=== PATIENT | male | born 1985 | race Two or more races ===

== ENCOUNTER 2021-11-05 12:54 | Emergency (ER) | payer MEDICAID, SELFPAY ==
--- NOTE | ~2021-11-05 | CT_ITS ---
EXAMINATION: CT BRAIN AND CT FACIAL BONES WITHOUT CONTRAST. CLINICAL INFORMATION: Fall with facial trauma COMPARISON: None TECHNIQUE: 5 mm thin axial and reformatted 2 mm thin sagittal and coronal images of brain were obtained. Axial 3 mm thin and reformatted 1.5 mm thin sagittal and coronal images of cervical spine were obtained. DLP 1185. FINDINGS: Brain: There is no acute intra-axial, extra-axial bleed, masses, collection midline shift. There is no acute infarction evolution. The lateral ventricles are slightly asymmetrical but not enlarged. The toscano to white matter difference is maintained normal. There is no edema. Bone windows reveal no calvarial abnormality. There is no scalp soft tissue abnormality. Bilateral paranasal sinuses and mastoid air cells are well-aerated with diffuse mucoperiosteal thickening bilateral ethmoid and maxillary sinuses. Rest the paranasal sinuses and mastoid air cells are well-aerated. Facial bones: There is mild mucoperiosteal thickening bilateral maxillary and ethmoid sinuses. The bony sinus merrill are intact. There is hypertrophic changes involving left middle and inferior turbinates. The left nasal cavity is slightly of iterative degenerative enlargement of turbinates and nasal mucosal hypertrophy. The bony orbits are symmetric and normal. Visualized bilateral optic globe, optic nerve and periorbital soft tissues are normal. There is no acute fracture involving maxillofacial and nasal bone. The soft tissues are normal. Bilateral TM joints are symmetrical and normal. There is no fracture involving the mandible. CT/CT facial bones wo con IMPRESSION: No acute intracranial process seen. No acute maxillofacial, nasal or mandibular fracture. 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
[2021-11-05 13:10] VITALS: BP 145/97; PULSE 120; RESP 20; TEMP 37; O2SAT 100; BMI 24.4
--- NOTE | 2021-11-05 13:29 | ED_ITS ---
HPI - General Adult General Chief complaint: General Medical Stated complaint: fell facial lac pain swelling Time Seen by Provider: 11/05/21 13:29 Source: patient Mode of arrival: ambulatory Limitations: no limitations History of Present Illness HPI narrative: Patient is a 36 year old male presenting to the emergency department today with lip pain after a fall. Patient states that he was drinking a large amount of alcohol last night when he tripped and fell, landing on his face. Patient states that he felt his 2 front teeth, push upwards and his bottom lip began bleeding. Patient states that this happened at approximately 0200 this morning. Patient states that he did not lose consciousness with the incident and did not injur anything else with the incident. Patient denies any dizziness, lightheadedness, abdominal pain, nausea, vomiting, fever, chills, blurry vision, double vision, loss of vision, chest pain, difficulty breathing, shortness of breath, back pain, night sweats, pain with urination, increased urinary frequency, increased urinary urgency, blood in his urine or stool, syncope or a near syncopal episode, bowel incontinence, bladder incontinence, bowel retention, bladder retention, or any other complaints at this time. Onset (ago): hour(s) Location: face Severity: mild Severity scale (1-10): 3 Pain Consistency: constant Relieving factors: none Exacerbating factors: none Associated symptoms: denies other symptoms Related Data Previous Rx's Medication Instructions Recorded amoxicillin 875 mg tablet 875 mg PO BID 7 Days #14 tab 11/05/21 Allergies Allergy/AdvReac Type Severity Reaction Status Date / Time No Known Allergies Allergy Unverified 06/16/20 19:08 [No Known Allergies*] Review of Systems Verdana 4l Constitutional: Verdana 4d Verdana 4d Constitutional: Verdana 4d Reports no additional constitutional complaints, Denies chills, Denies fever(s) and Denies night sweats Verdana 4l Eyes: Verdana 4d Verdana 4d Eyes: Verdana 4d Reports no additional eye complaints, Denies blurry vision, Denies change in vision, Denies diplopia, Denies eye discharge, Denies loss of vision and Denies eye pain Verdana 4l ENT: Verdana 4d Denies dizziness Verdana 4d Comments: Verdana 4d Verdana 4d lip laceration and dental pain Verdana 4d Verdana 4l Cardiovascular: Verdana 4d Verdana 4d Cardiovascular: Verdana 4d Reports no additional cardiovascular complaints, Denies chest pain, Denies lightheadedness, Denies Loss of Consciousness and Denies dyspnea Verdana 4l Respiratory: Verdana 4d Verdana 4d Respiratory: Verdana 4d Reports no additional respiratory complaints and Denies dyspnea Verdana 4l Gastrointestinal: Verdana 4d Verdana 4d Gastrointestinal: Verdana 4d Reports no additional gastrointestinal complaints, Denies abdominal pain, Denies melena, Denies hematochezia, Denies change in bowel habits and Denies change in stool character Verdana 4l Genitourinary: Verdana 4d Verdana 4d Genitourinary: Verdana 4d Reports no additional male genitourinary complaints, Denies hematuria, Denies oliguria, Denies difficulty urinating, Denies dysuria, Denies urinary frequency, Denies urinary hesitancy, Denies urinary incontinenceincontinence and Denies urinary urgency Musculoskeletal: Musculoskeletal: Reports no additional musculoskeletal complaints, Denies numbness and Denies tingling Neurologic: Denies dizziness, Denies loss of vision, Denies numbness and Denies tingling Psychiatric: Psychiatric: Reports no additional psychiatric complaints Endocrine: Endocrine: Reports no additional endocrine complaints Hematologic/Lymphatic: Hematologic/Lymphatic: Reports no additional hematologic/lymphatic complaints Allergic/Immunologic: Allergic/Immunologic: Reports no additional allergic/immunologic complaints [facility] Past Medical History Attestation statement: The following information was validated with the patient. Medical History (Updated 11/05/21 @ 15:19 by AYDE Root) No known health problems Social History Social History Advance Directives: No Advance Directives Information Provided: Yes Physical Exam Verdana 4l Vital Signs: Verdana 4d Verdana 4d Vital Signs: Verdana 4d Verdana 4Bd Last Vital Signs Verdana 4d Offal Baler New 4d Offal Baler New 4d Temp 98.6 F 11/05/21 13:10 Offal Baler New 4d Pulse 120 H 11/05/21 13:10 Offal Baler New 4d Resp 20 11/05/21 13:10 BP 145/97 H 11/05/21 13:10 Pulse Ox 100 11/05/21 13:10 BMI result Body Mass Index 24.4 Const: General: cooperative, no acute distress, alert and awake Nutritional Appearance: well nourished Orientation/consciousness: patient oriented x3 Limitations: no limitations HENMT: Head: Yes normal to inspection and Yes atraumatic Ears: hearing grossly normal bilaterally and external ears normal General nose exam: Normal external nose present, no nasal discharge noted and no epistaxis Face and sinus: Yes normal facial exam, No abrasion and No laceration Mouth: Normal oral and palatal mucosa present, no drooling, no muffled voice and other (1cm laceration to the right side of the internal bottom lip) Teeth image: 1. Stable to palpation however, are tender to palpation. Eyes: General: appearance normal, both eyes and all related structures Periorbital: periorbital findings normal Eyelids: Yes eyelids normal Conjunctivae: conjunctivae normal Pupils: Equal, round and reactive pupils present EOM: EOMs intact bilaterally Neck: Neck: Yes normal visual inspection, Yes full ROM and Yes no lymphadenopathy Chest: Chest palpation & inspection: normal inspection of the chest Resp: Effort & Inspection: normal respiratory effort and able to speak in complete sentences Auscultation: clear to auscultation bilaterally Cardio: Rate: regular rate Rhythm: regular rhythm GI: Inspection: Yes normal to inspection Neuro: General: patient oriented x3 and moves all extremities Cranial nerves: Yes Equal, round and reactive pupils present Cognition (Neuro): normal cognition Motor exam (neuro): 5/5 motor strength present throughout Sensory Exam: Normal double simultaneous stimulation for sensation Coordination: [id number] test normal Extrem: General: Yes normal to inspection, Yes full ROM and Yes capillary refill normal Psych: Appearance: grossly normal Mental Status: mental status grossly normal Affect: normal affect Attitude: cooperative Thought process: Normal thought process present Thought content: Normal thought content present Insight: Good insight present (Psych) Procedures Laceration Laceration 1: Site: lip (lower) Side (If applicable): right Size (cm): 1 Description: linear Depth: simple, single layer Pre-repair: irrigated extensively Skin layer closed with: vicryl Size (cm): 6-0 Number of sutures: 1 Technique: simple, interrupted Subcutaneous layer closed with: vicryl Medical Decision Making MDM Narrative Medical decision making narrative: Patient is a 36 year old male presenting to the emergency department today with lip pain after a fall. Patient's physical exam showed very poor dentition throughout the mouth as well as a 1cm laceration to the inner aspect of the right side of the lower lip. There was no active bleeding from the laceration. Patient's teeth were palpated throughout, specifically the 2 front teeth, and all were deemed stable. Patient's CT head and CT maxilofacial showed no acute process. I explained my physical exam findings as well as all test results to the patient. I answered all questions asked by the patient. Patient's laceration was repaired, per procedure note, without incident. I stressed the importance of the patient taking his medication, including his antibiotic, as prescribed. I stressed the importance of the patient establishing and following up with a primary care provider and dentist. I stressed the importance of the patient returning to the emergency department immediately if his symptoms were to worsen or if he were to develop any dizziness, shortness of breath, difficulty breathing, chest pain, blurry vision, loss of vision, nausea, vomiting, abdominal pain, fever, chills, back pain, or any other complaints. Patient verbalized agreement and understanding with this treatment plan and discharge. Differential Diagnosis Differential Diagnosis: Lip laceration, lip abrasion, dental fracture Medical Records Medical records reviewed: Yes I reviewed the patient's medical records. Imaging Data CT head and maxilofacial : Attestation: I personally reviewed and interpreted this imaging study as follows: Radiologist's impression: EXAMINATION: CT BRAIN AND CT FACIAL BONES WITHOUT CONTRAST. CLINICAL INFORMATION: Fall with facial trauma? COMPARISON: None? TECHNIQUE: 5 mm thin axial and reformatted 2 mm thin sagittal and coronal images of brain were obtained. Axial 3 mm thin and reformatted 1.5 mm thin sagittal and coronal images of cervical spine were obtained. DLP 1185. FINDINGS: Brain: There is no acute intra-axial, extra-axial bleed, masses, collection midline shift. There is no acute infarction evolution. The lateral ventricles are slightly asymmetrical but not enlarged. The toscano to white matter difference is maintained normal. There is no edema. Bone windows reveal no calvarial abnormality. There is no scalp soft tissue abnormality. Bilateral paranasal sinuses and mastoid air cells are well-aerated with diffuse mucoperiosteal thickening bilateral ethmoid and maxillary sinuses. Rest the paranasal sinuses and mastoid air cells are well-aerated. Facial bones: There is mild mucoperiosteal thickening bilateral maxillary and ethmoid sinuses. The bony sinus merrill are intact. There is hypertrophic changes involving left middle and inferior turbinates. The left nasal cavity is slightly of iterative degenerative enlargement of turbinates and nasal mucosal hypertrophy. The bony orbits are symmetric and normal. Visualized bilateral optic globe, optic nerve and periorbital soft tissues are normal. There is no acute fracture involving maxillofacial and nasal bone. The soft tissues are normal. Bilateral TM joints are symmetrical and normal. There is no fracture involving the mandible. CT/CT head/brain wo con IMPRESSION: No acute intracranial process seen. ? No acute maxillofacial, nasal or mandibular fracture. ? 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 Dictated By: Dennys Chery MD Signed By: Electronically signed by Dennys Chery MD 11/05/21 1917 Discharge Plan Discharge Clinical Impression: Laceration of internal mouth Patient Disposition: Home, Self-Care Instructions: Facial Laceration (ED) Additional Instructions: Call or visit any of the clinics below to establish with a dentist: [facility] [address] [place] [address] [facility] [address] [facility], [address] [facility] [address] [place] [address] [facility] [address] [place] [id number] [facility] [address] [place] [address] [place] [address] [place] [address] Call to discuss finding and establishing with a primary care provider. Follow up with your primary care provider. Return to the emergency department immediately if your symptoms worsen or if you develop any dizziness, shortness of breath, difficulty breathing, chest pain, blurry vision, loss of vision, nausea, vomiting, abdominal pain, fever, chills, back pain, or any other complaints. Prescriptions: New amoxicillin 875 mg tablet 875 mg PO BID 7 Days Qty: 14 0RF Stand Alone Forms: Work/School Release Interventions: ED Discharge Assessment Last Done: 11/05/21 15:27 Discharge Date/Time: 11/05/21 15:28 Print Language: Lithuanian
--- NOTE | 2021-11-05 15:27 | PC.NURSE ---
BOTTOM LIP IRRIGATED WITH NS, 1 SUTURE PLACED BY PA. PT TOLERATED PROCEDURE WELL.
== END 2021-11-05 15:28 | disposition home or self-care (01) ==
PROVIDERS: Emergency Provider Emergency Medicine
DX: S01.511A Laceration without foreign body of lip, initial encounter (principal); G44.309 Post-traumatic headache, unspecified, not intractable; W01.0XXA Fall on same level from slipping, tripping and stumbling without subsequent striking against object, initial encounter; Y93.9 Activity, unspecified; Y92.9 Unspecified place or not applicable; Y99.9 Unspecified external cause status
CPT/HCPCS: 12011; 70450; 70486; 99283

== ENCOUNTER 2021-11-11 14:47 | Emergency (ER) | payer MEDICAID, SELFPAY ==
[2021-11-11 15:21] VITALS: BP 133/84; PULSE 76; RESP 18; TEMP 36.4; O2SAT 96; BMI 25.0
--- NOTE | 2021-11-11 15:50 | ED.WOUNDLAC ---
HPI - Wound/Laceration General Chief Complaint: Wound/Laceration Stated Complaint: oral pain Time Seen by Provider: 11/11/21 14:52 Source: patient Mode of arrival: ambulatory Limitations: no limitations History of Present Illness HPI narrative: 36-year-old male here with complaints of lower lip swelling with discharge. Patient was seen here on November 05 after having a mechanical fall causing a lip laceration. He had 1 suture placed to the outer aspect of the lip but no sutures are placed on the inner lip. Patient returns today because he reports that his lower lip is painful, swollen with foul discharge. He was prescribed Augmentin twice daily for 7 days but is unclear with the patient took this medication. He denies any fevers or chills. He is using salt water gargles daily. No fevers, chills Related Data Previous Rx's Medication Instructions Recorded amoxicillin 875 mg tablet 875 mg PO BID 7 Days #14 tab 11/05/21 amoxicillin 875 mg-potassium 1 tab PO BID #14 tab 11/11/21 clavulanate 125 mg tablet Allergies Allergy/AdvReac Type Severity Reaction Status Date / Time No Known Allergies Allergy Unverified 06/16/20 19:08 [No Known Allergies*] Review of Systems Review of Systems: Yes all other systems are reviewed and are negative Constitutional: Constitutional: Reports no additional constitutional complaints, Denies body ache(s), Denies chills, Denies fever(s), Denies headache(s) and Denies weakness Eyes: Eyes: Reports no additional eye complaints and Denies change in vision ENT: Reports system reviewed and no additional complaints, except as documented, Denies dizziness, Denies headache(s), Reports lip swelling, Denies nasal congestion, Denies nasal discharge and Denies neck pain Cardiovascular: Cardiovascular: Reports no additional cardiovascular complaints, Denies chest pain, Denies leg edema and Denies dyspnea Respiratory: Respiratory: Reports no additional respiratory complaints, Denies cough and Denies dyspnea Gastrointestinal: Gastrointestinal: Reports no additional gastrointestinal complaints, Denies abdominal pain, Denies diarrhea, Denies nausea and Denies vomiting Genitourinary: Genitourinary: Denies urinary incontinence Musculoskeletal: Musculoskeletal: Reports no additional musculoskeletal complaints, Denies back pain, Denies arthralgias, Denies joint swelling, Denies neck pain, Denies numbness and Denies tingling Integumentary/Breasts: Skin/Breast: Reports system reviewed and no additional complaints, except as docu and Denies rash Neurologic: Reports system reviewed and no additional complaints, except as documented, Denies Abnormal speech present, Denies dizziness, Denies headache(s), Denies numbness, Denies tingling and Denies weakness Allergic/Immunologic: Allergic/Immunologic: Reports lip swelling PMFSH Past Medical History Attestation statement: The following information was validated with the patient. Source: old records reviewed and nursing notes reviewed Medical History No known health problems Social History Social History Advance Directives: No Advance Directives Information Provided: No Physical Exam Vital Signs: Vital Signs: Last Vital Signs Temp 97.6 F 11/11/21 15:21 Pulse 76 11/11/21 15:21 Resp 18 11/11/21 15:21 BP 133/84 11/11/21 15:21 Pulse Ox 96 11/11/21 15:21 BMI result Body Mass Index 25.0 Const: General: cooperative, healthy appearing, comfortable and no acute distress Orientation/consciousness: patient oriented x3 Limitations: no limitations HENMT: Head: Yes normal to inspection Ears: hearing grossly normal bilaterally General nose exam: Normal external nose present Face and sinus: Yes normal facial exam Mouth: Normal oral and palatal mucosa present Mouth/tongue images: 1. on the inner aspect of the lip there is a laceration that is present. There is local swelling, exudate noted over the wound with tenderness to palpate. There is no palpable fluctuance. Throat: Yes posterior oropharynx normal Eyes: General: appearance normal, both eyes and all related structures Pupils: Equal, round and reactive pupils present Neck: Neck: Yes normal visual inspection Chest: Chest palpation & inspection: normal inspection of the chest Resp: Effort & Inspection: normal respiratory effort Auscultation: clear to auscultation bilaterally Cardio: Rate: regular rate Rhythm: regular rhythm Peripheral pulses: Peripheral pulses 2+ throughout GI: Inspection: Yes normal to inspection Palpation (GI): Soft to palpation and nontender Auscultation: normal bowel sounds Back/Spine/Pelvis: Thoracic/Lumbar Spine: thoracic and lumbar spine normal to inspection Skin: General skin exam: no rashes or lesions noted Neuro: General: patient oriented x3, no focal motor deficits and normal sensation to monofilament Cranial nerves: Yes Equal, round and reactive pupils present Cognition (Neuro): normal cognition Speech: No Abnormal speech present Gait exam (Neuro): Normal gait present Motor exam (neuro): 5/5 motor strength present throughout Extrem: General: Yes normal to inspection Course Course Course Narrative: 36-year-old male here with reports of lower lip swelling with pain and drainage after having a fall approximately 1 week ago causing a laceration to the inner lip that was not closed with any sutures. It is unclear if the patient has been using his oral antibiotics On exam he does have some swelling, tenderness, exudate over the wound site. Consistent with and wound infection. There is no palpable fluctuance or abscess on exam. Will treat with course of antibiotics. I discussed the patient should be using hydrogen peroxide to clean the wound and saltwater gargles. Reviewed worrisome signs and symptoms of when to return to the emergency department. Comfortable discharge home. MDM - Wound/Laceration Medical Records Attestation: I reviewed the patient's medical records. Lab Data Attestation: I reviewed the patient's lab results. Discharge Plan Discharge Clinical Impression: Infection of lip Patient Disposition: Home, Self-Care Instructions: Wound Infection (DC) Additional Instructions: Continue saltwater gargles or hydrogen peroxide rinses Prescriptions: New amoxicillin-pot clavulanate 875-125 mg tablet 1 tab PO BID Qty: 14 0RF No Action amoxicillin 875 mg tablet 875 mg PO BID 7 Days Qty: 14 0RF Referrals: Physician,Unknown J [Primary Care Provider] - 2 days Interventions: ED Discharge Assessment Last Done: 11/11/21 15:57 Discharge Date/Time: 11/11/21 15:57
== END 2021-11-11 15:57 | disposition home or self-care (01) ==
LOC: HO.ED 15:39
PROVIDERS: Emergency Provider Emergency Medicine Emergency Medical Services
DX: K13.0 Diseases of lips (principal)
CPT/HCPCS: 99283

== ENCOUNTER 2021-12-01 08:21 | Emergency (ER) | payer MEDICAID, SELFPAY ==
[2021-12-01 08:30] VITALS: BP 137/81; PULSE 90; RESP 16; TEMP 36; O2SAT 96; BMI 24.4
[2021-12-01 09:09] LABS: Amphetamine Screen Urine Not Detected (Not Detect); Barbiturates, Urine Not Detected (Not Detect); Benzodiazepines Screen Urine Not Detected (Not Detect); Cannabinoid Screen Urine Not Detected (Not Detect); Cocaine Screen Urine Not Detected (Not Detect); Fentanyl, urine Not Detected (Not Detect); Opiate Screen Urine Not Detected (Not Detect); Phencyclidine Screen Urine Not Detected (Not Detect)
--- NOTE | 2021-12-01 09:14 | ED_ITS ---
HPI - General Adult General Chief complaint: General Medical Stated complaint: Medical clearance Time Seen by Provider: 12/01/21 09:14 History of Present Illness HPI narrative: Patient has no complaints of any injury or pain but he fell a working may require a drug screen so he is here without complaint requesting a urine drug screen Related Data Previous Rx's Medication Instructions Recorded amoxicillin 875 mg tablet 875 mg PO BID 7 Days #14 tab 11/05/21 amoxicillin 875 mg-potassium 1 tab PO BID #14 tab 11/11/21 clavulanate 125 mg tablet Allergies Allergy/AdvReac Type Severity Reaction Status Date / Time No Known Allergies Allergy Verified 12/01/21 08:31 [No Known Allergies*] Review of Systems Review of Systems: No headache no neck pain no chest pain no shortness of breath no abdominal pain no nausea or vomiting no dizziness no confusion Yes all other systems are reviewed and are negative [facility] Past Medical History Source: nursing notes reviewed Medical History No known health problems Social History Social History Advance Directives: No Advance Directives Information Provided: No Physical Exam ED Vital Signs: Vital Signs - 24 hr 12/01/21 08:30 Temperature 96.8 F Pulse Rate 90 Respiratory Rate 16 Blood Pressure 137/81 Pulse Oximetry 96 BMI result Body Mass Index 24.4 General appearance comfortable cooperative no acute distress Head is normocephalic atraumatic Neck is supple Respiratory no distress Extremities full range of motion x4 Neuro gait and balance are normal and interaction both comprehension and expression are normal, A&O x3 Medical Decision Making Lab Data Lab results reviewed: Yes I reviewed the patient's lab results. Labs: Lab Results 12/01/21 Range/Units 08:47 Urine Opiates Screen Not Detected (Not Detect) Urine Fentanyl Screen Not Detected (Not Detect) Ur Barbiturates Screen Not Detected (Not Detect) Ur Phencyclidine Scrn Not Detected (Not Detect) Ur Amphetamines Screen Not Detected (Not Detect) U Benzodiazepines Scrn Not Detected (Not Detect) Urine Cocaine Screen Not Detected (Not Detect) U Marijuana (THC) Screen Not Detected (Not Detect) Discharge Plan Discharge Clinical Impression: Encounter for drug screening Patient Disposition: Home, Self-Care Additional Instructions: Your drug screen was normal and I gave you a copy Return any time any concerns Prescriptions: No Action amoxicillin 875 mg tablet 875 mg PO BID 7 Days Qty: 14 0RF amoxicillin-pot clavulanate 875-125 mg tablet 1 tab PO BID Qty: 14 0RF
== END 2021-12-01 09:27 | disposition home or self-care (01) ==
PROVIDERS: Emergency Provider Emergency Medicine
DX: Z02.83 Encounter for blood-alcohol and blood-drug test (principal); Z79.899 Other long term (current) drug therapy
CPT/HCPCS: 80307; 99283; 99284

== ENCOUNTER 2021-12-13 15:31 | Emergency (ER) | payer MEDICAID, SELFPAY ==
[2021-12-13 16:06] VITALS: BP 133/84; PULSE 82; RESP 18; O2SAT 97; BMI 25.7
--- NOTE | 2021-12-13 16:30 | ED_ITS ---
HPI - Extremity Injury (Lower) General Chief Complaint: Extremity Injury, Lower Stated Complaint: fell downstairs rt leg pain Time Seen by Provider: 12/13/21 16:03 Source: patient Mode of arrival: ambulatory History of Present Illness HPI Narrative: 36yo M with no sig PMHx presenting to the ED c/o right thigh pain and ecchymosis s/p slip and fall down wet stairs last night. Denies sx prior to fall. Reports caught himself with railing and leg was hitting/rubbing against railing on way down 8 steps, never fell all the way to the ground, denies head trauma or LOC. Ambulatory with pain. Denies injruy to other area. Denies nubness, tingling, weakness complaint: thigh injury Onset (ago): day(s) Related Data Previous Rx's Medication Instructions Recorded amoxicillin 875 mg tablet 875 mg PO BID 7 Days #14 tab 11/05/21 amoxicillin 875 mg-potassium 1 tab PO BID #14 tab 11/11/21 clavulanate 125 mg tablet acetaminophen 500 mg tablet 500 mg PO Q6H PRN #20 tab 12/13/21 (Tylenol Extra Strength) naproxen 500 mg tablet 500 mg PO BID PRN 10 Days #20 tab 12/13/21 Allergies Allergy/AdvReac Type Severity Reaction Status Date / Time No Known Allergies Allergy Verified 12/01/21 08:31 [No Known Allergies*] Review of Systems Review of Systems: Constitutional:No Fever, No Chills ENT/Mouth: No Ear Pain, No Nasal Congestion, No sore throat, No Rhinorrhea Cardiovascular: No Chest Pain, No SOB Respiratory: No Cough Gastrointestinal: No Nausea, No Vomiting, No Abdominal pain Genitourinary:No Dysuria, No Urinary Incontinence, No Flank Pain Musculoskeletal: + joint pain, No Myalgias, No Joint Swelling Skin: + Skin Lesions, No rash Neuro: No Weakness, No Numbness, No Paresthesias, No headache, No LOC Yes all other systems are reviewed and are negative [facility] Past Medical History Attestation statement: The following information was validated with the patient. Medical History No known health problems Social History Social History Advance Directives: No Advance Directives Information Provided: No Physical Exam Vital Signs: Vital Signs: Last Vital Signs Pulse 82 12/13/21 16:06 Resp 18 12/13/21 16:06 BP 133/84 12/13/21 16:06 Pulse Ox 97 12/13/21 16:06 BMI result Body Mass Index 25.7 Const: General: cooperative, healthy appearing and comfortable Orientation/consciousness: patient oriented x3 Limitations: no limitations HENMT: Head: Yes normal to inspection Ears: hearing grossly normal bilaterally General nose exam: Normal external nose present Face and sinus: Yes normal facial exam Eyes: General: appearance normal, both eyes and all related structures EOM: EOMs intact bilaterally Neck: Neck: Yes normal visual inspection and Yes no meningeal signs Resp: Effort & Inspection: normal respiratory effort and no respiratory distress Cardio: Rate: regular rate Heart sounds: S1 normal heart sound present and S2 normal heart sound present Peripheral pulses: dorsalis pedis present Skin: Rashes: no rashes Wounds: no wounds Neuro: General: patient oriented x3 and no meningeal signs Gait exam (Neuro): Normal gait present Extrem: Other: pelvis stable. Right hip/knee and ankle nontender, FROM RLE intact with pain Right lateral thigh with ecchymosis and ttp. compartments soft. NV intact distally General: Yes normal to inspection Right lower extremity: normal capillary refill MDM - Extremity Injury (Lower) MDM Narrative Medical decision making narrative: 36yo M with no sig PMHx presenting to the ED c/o right thigh pain and ecchymosis s/p slip and fall down wet stairs last night. On exam VSS, NAD, well appearing, PE as above c/w ecchymosis/bruising to R thigh Vs small hematoma. Low concern for fx as patient is ambulatory. Compartments soft Plan: Sx tx, return precautions, work note Medical Records Attestation: I reviewed the patient's medical records. Lab Data Attestation: I reviewed the patient's lab results. Discharge Plan Discharge Clinical Impression: Injury of thigh, right, Fall Patient Disposition: Home, Self-Care Instructions: Ecchymosis (ED) Additional Instructions: apply ice rest Naproxen is an antinflammatory / pain medication take with food in addition take tylenol if pain become unbearable please return to the ED Prescriptions: New acetaminophen [Tylenol Extra Strength] 500 mg tablet 500 mg PO Q6H PRN (Reason: pain or fever) Qty: 20 0RF naproxen 500 mg tablet 500 mg PO BID PRN (Reason: pain) 10 Days Qty: 20 0RF No Action amoxicillin 875 mg tablet 875 mg PO BID 7 Days Qty: 14 0RF amoxicillin-pot clavulanate 875-125 mg tablet 1 tab PO BID Qty: 14 0RF Referrals: Physician,Unknown J [Primary Care Provider] - 2 days Stand Alone Forms: Work/School Release Interventions: ED Discharge Assessment Last Done: 12/13/21 16:43
== END 2021-12-13 17:00 | disposition home or self-care (01) ==
LOC: HO.ED 16:48
PROVIDERS: Emergency Provider Emergency Medicine
DX: S89.91XA Unspecified injury of right lower leg, initial encounter (principal); W10.9XXA Fall (on) (from) unspecified stairs and steps, initial encounter; Y93.9 Activity, unspecified; Y92.9 Unspecified place or not applicable; Y99.9 Unspecified external cause status; Z79.899 Other long term (current) drug therapy
CPT/HCPCS: 99282; 99283

== ENCOUNTER 2022-10-31 13:20 | Emergency (ER) | payer MEDICAID, SELFPAY ==
--- NOTE | ~2022-10-31 | XR_ITS ---
EXAMINATION: XR CHEST CLINICAL INFORMATION: Positive Covid, cough with green sputum COMPARISON: None TECHNIQUE: 2 views of the chest were obtained. FINDINGS: The lungs are well-expanded and clear of acute process. Heart size and pulmonary vascularity is normal. No gross bony abnormality seen. XR/XR chest 2V IMPRESSION: Unremarkable chest exam.
[2022-10-31 13:25] VITALS: BP 150/87; PULSE 104; RESP 18; TEMP 36.9; O2SAT 96; BMI 37.2
--- NOTE | 2022-10-31 13:26 | ED_ITS ---
HPI - URI/Sore Throat General Chief Complaint: Upper Respiratory Symptoms <Emmanuelle Jones NP - Last Filed: 10/31/22 13:28> Stated Complaint: Chills/Body aches <Emmanuelle Jones NP - Last Filed: 10/31/22 13:28> Time Seen by Provider: 10/31/22 14:36 <Emmanuelle Jones NP - Last Filed: 10/31/22 13:28> Source: patient <AYDE Walters Last Filed: 10/31/22 16:05> Mode of arrival: ambulatory <AYDE Walters Last Filed: 10/31/22 16:05> Limitations: no limitations <AYDE Walters Last Filed: 10/31/22 16:05> History of Present Illness HPI Narrative: 37yoM c No Sig PMHx presenting to the ER with complaints of generalized fatigue/malaise, chills, body aches, nasal congestion/rhinorrhea, sore throat Sun productive cough with green-colored sputum since Saturday/Saturday worse today. Reports some diarrhea as well. Reports that his kid has similar symptom s a few days ago and they are feeling better. He reports his is now complaining of a sore throat. He denies any other sick contacts that he is aware of although could be work companions as well he reports due to he is working. He denies any measured fevers, dizziness, neck pain/stiffness, trouble swallowing or breathing, chest pain or shortness of breath, dyspnea on exertion, orthopnea, nausea/vomiting, abdominal pain, constipation, rashes, lower extremity edema or calf tenderness or any other symptoms complaints or concerns at this time. <AYDE Walters Last Filed: 10/31/22 16:05> MD elicited complaint: cough, sore throat, rhinorrhea and nasal congestion <AYDE Waltesr Last Filed: 10/31/22 16:05> Onset (ago): day(s) (3-4 days ) <AYDE Walters Last Filed: 10/31/22 16:05> Consistency: constant and progressively worsening <AYDE Walters Last Filed: 10/31/22 16:05> Severity: mild <AYDE Walters - Last Filed: 10/31/22 16:05> Description of mucous: clear, watery, yellow and green <AYDE Walters Last Filed: 10/31/22 16:05> Able to tolerate fluids by mouth: Yes <AYDE Walters - Last Filed: 10/31/22 16:05> Exacerbating factors: swallowing <AYDE Walters - Last Filed: 10/31/22 16:05> Relieving factors: nothing <AYDE Walters Last Filed: 10/31/22 16:05> Context: sick contacts and other(s) with similar symptoms <AYDE Walters - Last Filed: 10/31/22 16:05> Associated symptoms: chills, myalgias, headache, rhinorrhea, nasal congestion, sore throat, cough and diarrhea <AYDE Walters Last Filed: 10/31/22 16:05> Treatments prior to arrival: none <AYDE Walters Last Filed: 10/31/22 16:05> Related Data Home Medications: Previous Rx's Medication Instructions Recorded amoxicillin 875 mg tablet 875 mg PO BID 7 days #14 tabs 11/05/21 amoxicillin 875 mg-potassium 1 tab PO BID #14 tabs 11/11/21 clavulanate 125 mg tablet acetaminophen 500 mg tablet 500 mg PO Q6H PRN pain or fever 12/13/21 (Tylenol Extra Strength) #20 tabs naproxen 500 mg tablet 500 mg PO BID PRN pain 10 days #20 12/13/21 tabs acetaminophen 500 mg tablet 1,000 mg PO QID PRN fever or pain 10/31/22 (Tylenol Extra Strength) #14 tabs codeine 10 mg-guaifenesin 100 mg/5 5 ml PO Q6H PRN cold symptoms #120 10/31/22 mL oral liquid (Guaifenesin AC) mL ibuprofen 800 mg tablet 800 mg PO Q8H PRN pain #14 tabs 10/31/22 <CAROLINE Morgan Last Filed: 10/31/22 13:28> Allergies/Adverse Reactions: Allergies Allergy/AdvReac Type Severity Reaction Status Date / Time No Known Allergies Allergy Verified 12/01/21 08:31 [No Known Allergies*] <Emmanuelle Jones NP - Last Filed: 10/31/22 13:28> Review of Systems Review of Systems: Constitutional : + chills/fatigue/malaise, No Weight loss, No Night Sweats ENT/Mouth : + sore throat/nasal congestion/rhinorrhea, No Hearing loss, No Ear Pain, No Sinus Pain, No Hoarseness,No Swallowing Difficulty Eyes: No Eye Pain, No Swelling, No Redness, No Foreign Body, No Discharge, No Vision Changes Cardiovascular : No Chest Pain, No SOB, No Dyspnea on Exertion, No Orthopnea, No Edema, No Palpitations Respiratory : + Cough, + Sputum, No Wheezing, No Smoke Exposure, No Dyspnea Gastrointestinal : No Nausea, No Vomiting, + Diarrhea, No Constipation, No abdominal Pain, No Hematochezia, No Melena Genitourinary : no irregular bleeding, No Dysuria, No Urinary Frequency, No Hematuria, No Urinary Incontinence, No Urgency, No Flank Pain, No Urinary Flow Changes, No Hesitancy Musculoskeletal : No joint pain, + Myalgias, No Joint Swelling Skin : No Skin Lesions, No rash Neuro : No Weakness, No Numbness, No Paresthesias, No Loss of Consciousness, No Dizziness, No Headache Psych : No Anxiety/Panic, No Depression, No SI/HI/AH/VH, No Social Issues, Heme/Lymph: No Bruising, No Bleeding,No Lymphadenopathy Endocrine : No Polyuria, No Polydipsia, No Temperature Intolerance <AYDE Walters - Last Filed: 10/31/22 16:05> Yes all other systems are reviewed and are negative <AYDE Walters - Last Filed: 10/31/22 16:05> [facility] Past Medical History Attestation statement: The following information was validated with the patient. <AYDE Walters - Last Filed: 10/31/22 16:05> Source: old records reviewed and nursing notes reviewed <AYDE Walters - Last Filed: 10/31/22 16:05> Medical History: Medical History No known health problems <Emmanuelle Jones NP - Last Filed: 10/31/22 13:28> Social History Social History: Social History Advance Directives: No Advance Directives Information Provided: Yes <Emmanuelle Jones NP - Last Filed: 10/31/22 13:28> Physical Exam Vital Signs: Vital Signs: Last Vital Signs Temp 98.4 F 10/31/22 13:25 Pulse 104 H 10/31/22 13:25 Resp 18 10/31/22 13:25 BP 150/87 H 10/31/22 13:25 Pulse Ox 96 10/31/22 13:25 O2 Del Method 10/31/22 13:25 BMI result Body Mass Index 37.2 <Emmanuelle Jones NP - Last Filed: 10/31/22 13:28> Vital Signs: Last Vital Signs Temp 98.4 F 10/31/22 13:25 Pulse 104 H 10/31/22 13:25 Resp 18 10/31/22 13:25 BP 150/87 H 10/31/22 13:25 Pulse Ox 96 10/31/22 13:25 O2 Del Method 10/31/22 13:25 BMI result Body Mass Index 37.2 Vital signs reviewed. Blood pressure 150/87. Pulse 104. Respiration normal. Oxygen normal. Temperature normal. <AYDE Walters - Last Filed: 10/31/22 16:05> Appearance: Alert. Oriented X3. No acute distress. Head: Normal external exam. Normocephalic. Atraumatic. Eyes: PERRLA. EOMI. Conjunctiva and sclera normal. Eyelids normal. ENT: EAC normal. TM's Normal. Pharynx normal. Uvula midline. Moist mucous membranes. No lesions/ulcerations or masses noted on the tongue. Normal voice. No trismus noted. No drooling noted. No muffled voice noted. Neck: Normal inspection. Neck supple. FROM. No adenopathy. Thyroid Normal. No meningeal signs. CVS: Normal heart rate and rhythm. Heart sound normal. Pulses normal throughout. No murmurs/rales/gallops. Respiratory: No respiratory distress. Painless inspiration. Breath sounds normal. No wheezes/rales/rhonchi noted. Chest nontender. No accessory muscle usage noted or decreased air movement noted. Abdomen: Soft and nontender. Back: Full range of motion noted. Nontender. Skin: Skin warm and dry. Normal skin color. Normal skin turgor. No rashes/lesions/lacerations noted. Extremities: Extremities exhibit normal range of motion and nontender. Neuro: Oriented X 3. No motor deficit. No sensory deficit. Reflexes normal. Normal steady gait. No focal neuro deficits noted. CN's II-XII intact bilaterally? Vascular: + radial pulses. Normal cap refill. No cyanosis noted to upper extremity nails <AYDE Walters - Last Filed: 10/31/22 16:05> Course Course Course Narrative: This is rapid medical exam. Deferred additional HPI, ROS, PE to primary provider. 37 yo male healthy here with body aches, chills since yesterday. Will send testing for flu, covid, rsv, VSS <Emmanuelle Jones NP - Last Filed: 10/31/22 13:28> Reevaluation(s) Reevaluation #1: 37yoM c No Sig PMHx presenting to the ER with complaints of generalized fatigue/malaise, chills, body aches, nasal congestion/rhinorrhea, sore throat Sun productive cough with green-colored sputum since Saturday/Saturday worse today. Reports some diarrhea as well. patient presents with acute cough, most consistent with Viral syndrome/etiology. Differential diagnosis includes influenza versus RSV versus COVID versus viral bronchitis or other virus. Presentation not consistent with acute bacterial pneumonia, asthma, transient airway hyperresponsiveness. Presentation not consistent with chronic causes of cough (including GERD, asthma, postnasal discharge, medication side effect, CHF, lung cancer or mass). Patient did test positive for COVID. Negative for influenza and RSV. Chest x- ray was ordered. If negative patient can be discharged with symptomatic treatment and instructions to self isolate per CDC guidelines and instructions return if any new or worsening symptoms to follow up with primary care provider. Patient understands agrees with this plan. <AYDE Walters - Last Filed: 10/31/22 16:05> Time: 15:27 <AYDE Walters - Last Filed: 10/31/22 16:05> Medical Decision Making Lab Data MDM Lab Attestation statement: I reviewed the patient's lab results. <AYDE Walters - Last Filed: 10/31/22 16:05> Labs: Lab Results 10/31/22 Range/Units 13:37 Influenza Type A (PCR) NEGATIVE (Negative) Influenza Type B (PCR) NEGATIVE (Negative) RSV RNA Qual (PCR) NEGATIVE (Negative) SARS-CoV-2 RNA (RT-PCR) POSITIVE A (Negative) <Emmanuelle Jones NP - Last Filed: 10/31/22 13:28> Lab Results 10/31/22 Range/Units 13:37 Influenza Type A (PCR) NEGATIVE (Negative) Influenza Type B (PCR) NEGATIVE (Negative) RSV RNA Qual (PCR) NEGATIVE (Negative) SARS-CoV-2 RNA (RT-PCR) POSITIVE A (Negative) <AYDE Walters - Last Filed: 10/31/22 16:05> Independent Interpretation I performed an independent interpretation of an: Plain X-Ray <AYDE Walters - Last Filed: 10/31/22 16:05> Interpretation: EXAMINATION: XR CHEST CLINICAL INFORMATION: Positive Covid, cough with green sputum COMPARISON: None TECHNIQUE: 2 views of the chest were obtained. FINDINGS: The lungs are well-expanded and clear of acute process. Heart size and pulmonary vascularity is normal. No gross bony abnormality seen. XR/XR chest 2V IMPRESSION: Unremarkable chest exam. <AYDE Walters - Last Filed: 10/31/22 16:05> Radiology Impression Discussion of test interpretation with radiology: I have reviewed the radiologist's reading. <AYDE Walters - Last Filed: 10/31/22 16:05> Discharge Plan Discharge Clinical Impression: COVID-19 <Emmanuelle Jones NP - Last Filed: 10/31/22 13:28> Patient Disposition: Home, Self-Care <Emmanuelle Jones NP - Last Filed: 10/31/22 13:28> Instructions: COVID-19 (Coronavirus Disease 2019) (ED) <Emmanuelle Jones NP - Last Filed: 10/31/22 13:28> Prescriptions: New codeine-guaifenesin [Guaifenesin AC] 10-100 mg/5 mL liquid 5 ml PO Q6H PRN (Reason: cold symptoms) Qty: 120 0RF ibuprofen 800 mg tablet 800 mg PO Q8H PRN (Reason: pain) Qty: 14 0RF acetaminophen [Tylenol Extra Strength] 500 mg tablet 1,000 mg PO QID PRN (Reason: fever or pain) Qty: 14 0RF No Action amoxicillin 875 mg tablet 875 mg PO BID 7 Days Qty: 14 0RF acetaminophen [Tylenol Extra Strength] 500 mg tablet 500 mg PO Q6H PRN (Reason: pain or fever) Qty: 20 0RF naproxen 500 mg tablet 500 mg PO BID PRN (Reason: pain) 10 Days Qty: 20 0RF amoxicillin-pot clavulanate 875-125 mg tablet 1 tab PO BID Qty: 14 0RF <Emmanuelle Jones NP - Last Filed: 10/31/22 13:28> Referrals: Physician,None [Primary Care Provider] - 1 week (your pcp) <Emmanuelle Jones NP - Last Filed: 10/31/22 13:28> Stand Alone Forms: Work/School Release <Emmanuelle Jones NP - Last Filed: 10/31/22 13:28>
[2022-10-31 14:29] LABS: Influenza A PCR NEGATIVE (Negative); Influenza B PCR NEGATIVE (Negative); Resp Syncy Virus RNA Qual PCR NEGATIVE (Negative); SARS COV2 PCR INHOUSE POSITIVE (Negative)
== END 2022-10-31 16:13 | disposition home or self-care (01) ==
PROVIDERS: Nurse Practitioner Family; Emergency Provider Student in an Organized Health Care Education/Training Program
DX: U07.1 COVID-19 (principal); M79.10 Myalgia, unspecified site; R05.9 Cough, unspecified; R19.7 Diarrhea, unspecified; Z79.899 Other long term (current) drug therapy
CPT/HCPCS: 0241U; 71046; 99282; 99283

== ENCOUNTER 2023-10-13 21:34 | Emergency (ER) | payer SELFPAY ==
--- NOTE | ~2023-10-13 | XR_ITS ---
EXAMINATION: XR FOOT, RIGHT CLINICAL INFORMATION: Dropped board on the right big toe COMPARISON: None available. TECHNIQUE: AP, lateral, and oblique views of the right foot. FINDINGS: The bones and soft tissues are normal. No fracture. Alignment is anatomic. Joint spaces are maintained. XR/XR foot RT 2V IMPRESSION: Normal right foot. No visible fracture
[2023-10-13 21:36] VITALS: BP 133/81; PULSE 105; RESP 14; TEMP 37.1; O2SAT 99; BMI 30.1
--- NOTE | 2023-10-14 00:03 | ED_ITS ---
HPI - Extremity Injury (Lower) General Chief Complaint: Extremity Injury, Lower Stated Complaint: right toe injury Time Seen by Provider: 10/13/23 23:44 Source: patient Mode of arrival: ambulatory Limitations: no limitations History of Present Illness HPI Narrative: Patient apparently dropped a piece of wood on his right big toe yesterday at work complaining of slight amount of bleed and pain no other injury Related Data Previous Rx's Medication Instructions Recorded amoxicillin 875 mg tablet 875 mg PO BID 7 days #14 tabs 11/05/21 amoxicillin 875 mg-potassium 1 tab PO BID #14 tabs 11/11/21 clavulanate 125 mg tablet acetaminophen 500 mg tablet 500 mg PO Q6H PRN pain or fever 12/13/21 (Tylenol Extra Strength) #20 tabs naproxen 500 mg tablet 500 mg PO BID PRN pain 10 days #20 12/13/21 tabs acetaminophen 500 mg tablet 1,000 mg (2 x 500 mg) PO QID PRN 10/31/22 (Tylenol Extra Strength) fever or pain #14 tabs codeine 10 mg-guaifenesin 100 mg/5 5 ml PO Q6H PRN cold symptoms #120 10/31/22 mL oral liquid (Guaifenesin AC) mL ibuprofen 800 mg tablet 800 mg PO Q8H PRN pain #14 tabs 10/31/22 ibuprofen 600 mg tablet 600 mg PO Q6H PRN fever or pain 10/14/23 #30 tabs Allergies Allergy/AdvReac Type Severity Reaction Status Date / Time No Known Allergies Allergy Verified 12/01/21 08:31 [No Known Allergies*] Review of Systems 2 Review of Systems: Yes all other systems are reviewed and are negative PMFSH Past Medical History Onset Date is defined in the Problem List Problems that require an onset date and time if occurred within 24 hrs of arrival to the ED Aortic Dissection and Rupture; Neurologic impairment; Cardiopulmonary Arrest; Endotracheal Intubation; Insertion or Replacement of Mechanical Circulatory Assist Device Medical History No known health problems Social History Social History Smoked in Last 30 Days: No Use of substances other than those prescribed or required for medical reasons: No Advance Directives: No Advance Directives Information Provided: No Physical Exam 2 Vital Signs: Vital Signs: Last Vital Signs Temp 98.8 F 10/13/23 21:36 Pulse 95 10/14/23 00:06 Resp 16 10/14/23 00:06 BP 123/75 10/14/23 00:06 Pulse Ox 95 10/14/23 00:06 O2 Del Method Room Air 10/14/23 00:06 BMI result Body Mass Index 30.1 Extrem: Ankle/foot/toe images: 1. Slight tender distal part of right greater toe nail slight amount of bleed and small subungual hematoma no deformity Medical Decision Making Independent Interpretation I performed an independent interpretation of an: Plain X-Ray Radiology Impression Discussion of test interpretation with radiology: I have reviewed the radiologist's reading. Discharge Plan Discharge Clinical Impression: Contusion of toe of right foot Patient Disposition: Home, Self-Care Instructions: Foot Contusion (ED) Additional Instructions: Apply ice Ibuprofen for pain Local care as advised Prescriptions: New ibuprofen 600 mg tablet 600 mg PO Q6H PRN (Reason: fever or pain) Qty: 30 0RF No Action amoxicillin 875 mg tablet 875 mg PO BID 7 Days Qty: 14 0RF acetaminophen [Tylenol Extra Strength] 500 mg tablet 500 mg PO Q6H PRN (Reason: pain or fever) Qty: 20 0RF naproxen 500 mg tablet 500 mg PO BID PRN (Reason: pain) 10 Days Qty: 20 0RF amoxicillin-pot clavulanate 875-125 mg tablet 1 tab PO BID Qty: 14 0RF codeine-guaifenesin [Guaifenesin AC] 10-100 mg/5 mL liquid 5 ml PO Q6H PRN (Reason: cold symptoms) Qty: 120 0RF ibuprofen 800 mg tablet 800 mg PO Q8H PRN (Reason: pain) Qty: 14 0RF acetaminophen [Tylenol Extra Strength] 500 mg tablet 1,000 mg PO QID PRN (Reason: fever or pain) Qty: 14 0RF
[2023-10-14 00:06] VITALS: BP 123/75; PULSE 95; RESP 16; O2SAT 95
== END 2023-10-14 00:30 | disposition home or self-care (01) ==
PROVIDERS: Emergency Provider Internal Medicine
DX: S90.111A Contusion of right great toe without damage to nail, initial encounter (principal); W20.8XXA Other cause of strike by thrown, projected or falling object, initial encounter; Y93.89 Activity, other specified; Y92.9 Unspecified place or not applicable; Y99.9 Unspecified external cause status; M79.674 Pain in right toe(s)
CPT/HCPCS: 73620; 99283; 99284

== ENCOUNTER 2024-11-03 15:30 | Outpatient (AMB) | payer OTHER, SELFPAY ==
--- NOTE | 2024-11-03 15:31 | A.OFFVIS_ITS ---
Intake Visit Reasons: Erectile Dysfunction Intake Note: New Patient presents for initial visit for erectile dysfunction Urology Medications: none Blood Thinner: none Layout Artist Required: No Accompanied by: Self / Same As Patient Allergies No Known Allergies [No Known Allergies*] Allergy (Verified 11/03/24 16:45) Medication List - Last Reconciled 11/03/24 by HERNESTO Forman No Known Home Meds HPI Comments Details: Martin is a pleasant 39-year-old male patient of Dr. muna Palacios. He presents to the office today as a new patient for erectile dysfunction. In discussion with the patient today he reports ED has been present for many years however feels over the last 1-2 years it has worsen. He denies any bothersome urinary issues or concerns. He does report previously trialing Viagra and alprostadil in the past with no improvement in erectile dysfunction. We discu ssed at length potential causes of erectile dysfunction as well as further treatment options and risks and benefits of these treatment options. He denies any previous trauma. He does report to socially drinking he otherwise denies any other use of recreational drugs and or smoking. We discussed lifestyle modifications to assist with erectile dysfunction. He denies urinary urgency, urinary frequency, incontinence, nocturia, hematuria, dysuria, foul smelling urine, changes to urinary stream, flank pain, fever, and or chills. He is happy with his current voiding parameters. [facility] Medical History No known health problems Review of Systems Const All systems reviewed & are unremarkable except as noted in HPI and below Physical Exam Const General: cooperative, healthy appearing, comfortable, no acute distress, well developed, alert and awake Nutritional Appearance: overweight Orientation/consciousness: patient oriented x3 Limitations: no limitations HEENT Head: Yes normal to inspection, Yes normocephalic and Yes atraumatic Ears: hearing grossly normal bilaterally Eyes General: appearance normal, both eyes and all related structures Neck Neck: Yes normal visual inspection and Yes trachea midline Chest Chest palpation & inspection: normal inspection of the chest Resp Effort & Inspection: normal respiratory effort and able to speak in complete sentences Cardio Rate: regular rate GI Inspection: Yes normal to inspection General: Yes no CVA tenderness Back/Spine/Pelvis Back: no CVA tenderness Skin General skin exam: no rashes or lesions noted Neuro General: patient oriented x3 Extrem General: Yes normal to inspection Psych Appearance: grossly normal and well kempt Mental Status: mental status grossly normal Speech and movement: Normal speech and movement present and Clear speech present Affect: normal affect Attitude: cooperative Thought process: Normal thought process present Thought content: Normal thought content present Insight: Fair insight present (Psych) Judgement: Fair judgement present (Psych) Results AMB Urinalysis, Automated UA Leukoctes 0 Taylor/uL Last Edit by Dexmo on 11/03/24 16:14 UA Nitrite Last Edit by Dexmo on 11/03/24 16:14 UA Urobilinogen 0.2 mg/dL Last Edit by Dexmo on 11/03/24 16:14 UA Protein 0 mg/dL Last Edit by Dexmo on 11/03/24 16:14 UA pH 6.0 Last Edit by Dexmo on 11/03/24 16:14 UA Blood 0 Reji/uL Last Edit by Dexmo on 11/03/24 16:14 UA Specific [place] 1.025 Last Edit by Dexmo on 11/03/24 16:14 UA Ketone Last Edit by Dexmo on 11/03/24 16:14 UA Bilirubin 0 mg/dL Last Edit by Dexmo on 11/03/24 16:14 UA Glucose 0 mg/dL Last Edit by Dexmo on 11/03/24 16:14 Results Reviewed Results Reviewed: Laboratory Last Values Urine pH (Auto) 6.0 11/03/24 16:13 Specific [place] (Auto) 1.025 11/03/24 16:13 Urine Protein (Auto) 0 mg/dL 11/03/24 16:13 Glucose (UA)(Auto) 0 mg/dL 11/03/24 16:13 Urine Blood (Auto) 0 Reji/uL 11/03/24 16:13 Urine Bilirubin (Auto) 0 mg/dL 11/03/24 16:13 Urine Urobilinogen (Auto) 0.2 mg/dL 11/03/24 16:13 Leukocyte Esterase (Auto) 0 Taylor/uL 11/03/24 16:13 Assessment & Plan Assessment & Plan (1) Erectile dysfunction: Code(s): N52.9 - Male erectile dysfunction, unspecified Category: Medical Plan Unable to obtain urine for urinalysis. Patient currently denies any bothersome urinary issues or concerns. He reports be happy with current voiding parameters. We discussed at length lifestyle modifications to assist with ED. We discussed potential causes of ED as well as further treatment options and risks and benefits of these treatment options. Start Cialis as discussed and prescribed. Prescription provided for p.r.n. dosing. Will obtain PSA, LH, testosterone, and free testosterone for further assessment evaluation. Follow-up in 3 months with labs to be completed prior; or sooner with any issue s, concerns, and or questions. Orders: Orders AMB Urinalysis Automated Today Z13.9 - Encounter for screening, unspecified Testosterone, Free/Total Today N52.9 - Male erectile dysfunction, unspecified Lutenizing Hormone Today N52.9 - Male erectile dysfunction, unspecified Prostate Specific Antigen Today N52.9 - Male erectile dysfunction, unspecified Medications: New tadalafil (Cialis) [facility] [address] [id number] 5 mg PO DAILY 90 days 90 tabs 1RF tadalafil (Cialis) administer approximately 30min before sexual activity; do not use more than 1 dose per 24hrs [facility] [address] [id number] 20 mg PO DAILY 30 days PRN 14 tabs 3RF sexual activity Discontinued amoxicillin-pot clavulanate 875-125 mg Discontinued Reason: Patient no longer taking 1 tab PO BID 14 tabs 0RF acetaminophen (Tylenol Extra Strength) Discontinued Reason: Patient no longer taking 1,000 mg (2 x 500 mg) PO QID PRN 14 tabs 0RF fever or pain ibuprofen Discontinued Reason: Patient no longer taking 800 mg PO Q8H PRN 14 tabs 0RF pain amoxicillin Discontinued Reason: Patient no longer taking 875 mg PO BID 7 days 14 tabs 0RF acetaminophen (Tylenol Extra Strength) Discontinued Reason: Patient no longer taking 500 mg PO Q6H PRN 20 tabs 0RF pain or fever naproxen Discontinued Reason: Patient no longer taking 500 mg PO BID 10 days PRN 20 tabs 0RF pain codeine-guaifenesin 10-100 mg/5 mL (Guaifenesin AC) Discontinued Reason: Patient no longer taking 5 mL PO Q6H PRN 120 mL 0RF cold symptoms ibuprofen Discontinued Reason: Patient no longer taking 600 mg PO Q6H PRN 30 tabs 0RF fever or pain Patient Instructions: The patient had an opportunity to ask questions regarding the treatment plan. All questions were answered. Physical exam, labs, and imaging were discussed and reviewed in detail. As well as risks, benefits, and discussion of treatment choices. No major barriers to understanding were identified. The patient expressed understanding and agreement with the above treatment plan. The patient was made aware they should contact our office by phone for worsening of their current condition, the appearance of new symptoms, or with any questions or concerns. Compliance is encouraged with any medications and follow up testing that is ordered. It is a privilege to be allowed the opportunity to participate in? your urological care.? Again, if you have any questions or concerns If you have any questions or concerns please do not hesitate to contact me. The office is [phone]. This note is constructed using voice recognition software. While every effort has been made to ensure accuracy inbound call center representative errors may have been included. Yours sincerely, HERNESTO Forman Coding Level of Care Code New Pt Level 4 (49564) Diagnoses Erectile dysfunction N52.9
--- OUTSIDE RECORDS SUMMARY | 2024-11-03 15:33 | XMS_ITS | Clinical Summary ---
Author Organization [facility] Address [address] [place] [address] Care Team Providers Care Center Consultant Name Role Phone Unavailable Primary Care Provider Unavailabl e Source Comments PLEASE NOTE, if this patient is a minor, it may be UNLAWFUL to discuss sensitive information that is contained in these records (such as FAMILY PLANNING, MENTAL HEALTH or SUBSTANCE ABUSE) with the minor patient's parent or other person without the patient's specific authorization.[facility] Social History Tobacco Use Types Packs/Day Years Used Date Smoking Tobacco: Never Assessed Social Connections Answer Date Recorded Social Connections and Isolation 0 12/23/2021 Financial Resource Strain Answer Date R ecorded Financial Resource Strain 0 2021 Stress Answer Date Recorded Stress 0 12/23/2021 Physical Activity Answer Date Recorded Physical Activity 0 12/23/2021 Food Insecurity Answer Date Recorded Food 0 12/23/2021 Transportation Needs Answer Date Record ed Transportation 0 12/23/2021 Housing Stability Answer Date Recorded Housing 0 12/23/2021 Safety and Environment Answer Date Perry rded Safety 0 12/23/2021 Utilities Answer Date Recorded Utilities 0 12/23/2021 Employment Answer Date Recorded Employment 0 12/23/2021 Sex and Gender Information Value Date Recorded Sex Assigned at Not on file Legal Sex Male 11:29 AM PST Gender Identity Not on file Sexual Orientation Not on file Plan of Treatment Not on file Insurance [place]
== END 2024-11-03 16:08 | disposition home or self-care (01) ==
PROVIDERS: Visit Provider Nurse Practitioner Family
DX: Z13.9 Encounter for screening, unspecified (principal); N52.9 Male erectile dysfunction, unspecified
CPT/HCPCS: 99204

== ENCOUNTER → 2024-11-03 15:30 | Outpatient (BNVA) | payer OTHER, SELFPAY | PROVIDERS: Visit Provider Nurse Practitioner Family | DX: N52.9 Male erectile dysfunction, unspecified (principal) | CPT/HCPCS: 81003 ==

== ENCOUNTER 2025-02-20 21:52 | Emergency (ER) | payer OTHER, SELFPAY ==
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
[2025-02-20 21:54] VITALS: BP 129/80; PULSE 97; RESP 18; TEMP 36.3; O2SAT 97; BMI 30.6
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
[2025-02-20 23:52] VITALS: BP 134/83; PULSE 100; RESP 18; TEMP 36.8; O2SAT 95
[2025-02-21] MEDS: Ibuprofen 800 MG TABLET PO (00:15)
[2025-02-21 00:20] VITALS: BP 134/83; PULSE 100; RESP 18; TEMP 36.8; O2SAT 95
== END 2025-02-21 00:20 | disposition home or self-care (01) ==
PROVIDERS: Emergency Provider Emergency Medicine; PCP Internal Medicine
DX: S09.90XA Unspecified injury of head, initial encounter (principal); R42 Dizziness and giddiness; R51.9 Headache, unspecified; M54.50 Low back pain, unspecified; M54.2 Cervicalgia; V43.52XA Car driver injured in collision with other type car in traffic accident, initial encounter; Y93.9 Activity, unspecified; Y92.410 Unspecified street and highway as the place of occurrence of the external cause; Y99.8 Other external cause status
CPT/HCPCS: 70450; 72100; 72125; 99284

== ENCOUNTER → 2025-02-20 22:25 | Outpatient (BNV) | payer OTHER, SELFPAY | PROVIDERS: Emergency Provider Emergency Medicine; PCP Internal Medicine; Visit Provider Radiology Diagnostic Radiology | DX: S19.9XXA Unspecified injury of neck, initial encounter (principal); S09.90XA Unspecified injury of head, initial encounter; M54.50 Low back pain, unspecified; V89.2XXA Person injured in unspecified motor-vehicle accident, traffic, initial encounter | CPT/HCPCS: 70450; 72100; 72125 ==

== ENCOUNTER 2025-05-19 17:00 | Outpatient (RCR) | payer OTHER, SELFPAY ==
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
== END 2025-06-09 10:12 | disposition home or self-care (01) ==
LOC: HO.PT 17:00
PROVIDERS: PCP Internal Medicine; Visit Provider Internal Medicine
DX: M54.50 Low back pain, unspecified (principal)
CPT/HCPCS: 97110; 97140; 97161; 97530